=== PATIENT | male | born 1955 | race Caucasian/White ===

== ENCOUNTER → 2017-04-04 | Outpatient (CLI) | payer MEDICARE, MEDICAID ==
[~2017-04-04] MED LIST: BETADINE SOLUT118 ML TOP; BISAC-EVAC10 MG R; COLACE100 MG PO; CRANBERRY500 M1 PO; DEBROX,CARBAMID15 ML OTIC; ENEMA READY TO133 ML R; FIBER LAX625 MG PO; LEVAQUIN500 MG PO; LEVOTHROID (S112 MCG PO; LINZESS145 MCG PO; MILK OF MA400 MG/5 M PO; MIRALAX17 GM PO; MYSOLINE250 MG PO; NAPROSYN500 MG PO; NEOSPORIN1 PKT TOP; NIZORAL120 ML TOP; PRAMOSONE30 G1 TOP; PRED FORTE 1%5 ML OPHTH; PRILOSEC20 MG PO; ROBITUSSIN DM120 ML PO; TRIFLURIDINE OPHTH; TYLENOL325 MG PO; VITAMIN B-12500 MCG PO; VITAMIN D1000 UNIT PO; VITAMIN E TOP; ZYRTEC10 MG PO
== END ==
LOC: LBETH 04-03 05:43
DX: Z12.5 Encounter for screening for malignant neoplasm of prostate (principal)